=== PATIENT | female | born 1945 ===

== ENCOUNTER 2019-02-17 12:45 | Inpatient (IN) | payer OTHER ==
[~2019-02-17] VITALS: Ht 162.6 cm; Wt 100.2 kg
[2019-02-17] MEDS ORDERED: COZAAR100 MG PO (15:06)
[2019-02-17] MEDS ORDERED: METFORMIN HCL500 MG PO (15:07)
== END 2019-02-26 15:42 | disposition home or self-care (01) | DRG 743 ==
LOC: O/R 12:45 → SURH 02-25 17:58 → O/R 02-25 18:00 → SURH 02-26 15:42
PROVIDERS: ADMIT Obstetrics & Gynecology Gynecologic Oncology
PROC: 0UT74ZZ Resection of Bilateral Fallopian Tubes, Percutaneous Endoscopic Approach (ICD-10-PCS; 2019-02-25)
PROC: 0UT24ZZ Resection of Bilateral Ovaries, Percutaneous Endoscopic Approach (ICD-10-PCS; 2019-02-25)
PROC: 07BC4ZX Excision of Pelvis Lymphatic, Percutaneous Endoscopic Approach, Diagnostic (ICD-10-PCS; 2019-02-25)
PROC: 0UT94ZZ Resection of Uterus, Percutaneous Endoscopic Approach (ICD-10-PCS; principal; 2019-02-25 18:00)
DX: D25.1 Intramural leiomyoma of uterus (principal); D25.2 Subserosal leiomyoma of uterus; N95.0 Postmenopausal bleeding

== ENCOUNTER 2020-02-04 10:19 | Outpatient (CLI) | payer OTHER ==
[~2020-02-04 10:19] MED LIST: COZAAR100 MG PO; METFORMIN HCL500 MG PO
== END 2020-02-04 10:29 | disposition home or self-care (01) ==
LOC: MAMO-SONO 10:19
PROVIDERS: ATTEND Internal Medicine Hematology & Oncology
DX: N84.0 Polyp of corpus uteri (principal); C50.411 Malignant neoplasm of upper-outer quadrant of right female breast; Z80.7 Family history of other malignant neoplasms of lymphoid, hematopoietic and related tissues; N93.8 Other specified abnormal uterine and vaginal bleeding; R92.1 Mammographic calcification found on diagnostic imaging of breast; Z85.3 Personal history of malignant neoplasm of breast; R97.8 Other abnormal tumor markers; I10 Essential (primary) hypertension; E03.8 Other specified hypothyroidism; E78.49 Other hyperlipidemia; D51.8 Other vitamin B12 deficiency anemias; E08.65 Diabetes mellitus due to underlying condition with hyperglycemia; E55.9 Vitamin D deficiency, unspecified